=== PATIENT | female | born 1985 | race Caucasian/White ===

== ENCOUNTER 2019-12-26 22:55 | Emergency (ER) | payer OTHER ==
[~2019-12-26] VITALS: Ht 160 cm; Wt 63.6 kg
[2019-12-26 23:00] VITALS: BP 168/109; Ht 160 cm; Wt 63.6 kg
[2019-12-26] MEDS ORDERED: FLAGYL500 MG PO (23:20)
== END 2019-12-26 23:26 | disposition home or self-care (01) ==
LOC: D.ER 22:55
DX: T19.2XXA Foreign body in vulva and vagina, initial encounter (principal)

== ENCOUNTER 2020-12-17 14:24 | Emergency (ER) | payer OTHER ==
[~2020-12-17] VITALS: Ht 160 cm; Wt 70.5 kg
[~2020-12-17 14:24] MED LIST: FLAGYL500 MG PO
[2020-12-17 14:31] VITALS: Ht 160 cm; Wt 70.5 kg
[2020-12-17] MEDS ORDERED: ULTRAM50 MG PO (16:42)
[2020-12-17 17:22] VITALS: BP 138/101
== END 2020-12-17 18:00 | disposition home or self-care (01) ==
LOC: D.ER 14:24
DX: S83.8X1A Sprain of other specified parts of right knee, initial encounter (principal); S83.411A Sprain of medial collateral ligament of right knee, initial encounter; X58.XXXA Exposure to other specified factors, initial encounter

== ENCOUNTER → 2020-12-30 10:55 | Outpatient (CLI) | payer OTHER ==
[2020-12-17 14:31] VITALS: BMI 27.5
[~2020-12-30 10:55] MED LIST changes: +ULTRAM50 MG PO
== END | disposition home or self-care (01) ==
LOC: D.MRI 10:30
PROVIDERS: ATTEND Clinical Nurse Specialist Family Health
DX: M25.561 Pain in right knee (principal)

== ENCOUNTER → 2021-01-19 17:55 | Outpatient (CLI) | payer OTHER ==
[2020-12-17 14:31] VITALS: BMI 27.5
[2021-01-19 18:23] LABS: BASOPHILS 0.6 % (0-2); EOSINOPHILS 1.1 % (0-7); HEMATOCRIT 31.5 % (36.0-48.0); HEMOGLOBIN 9.3 g/dL (12-16); MCHC 29.7 g/dL (31.0-37.0); MEAN PLATELET VOLUME 9.3 fL (7.4-10.4); MONOCYTES 6.4 % (2-11); NEUTROPHILS 67.9 % (40-80); PLATELET COUNT 510 10x3/uL (130-400); RBC 5.08 10x6/uL (4.00-5.40); RDW 22.7 % (11.5-14.5); WBC 7.7 10x3/uL (4.8-10.8)
[2021-01-19 18:26] LABS: MCH 18.4 pg (26.0-34.0)
[2021-01-19 19:14] LABS: ERYTHROCYTE SEDIMENTATION RATE 19 mm/hr (0-20)
== END | disposition home or self-care (01) ==
LOC: D.LABREF 17:55
PROVIDERS: ATTEND Clinical Nurse Specialist Family Health
DX: Z00.00 Encounter for general adult medical examination without abnormal findings (principal)